=== PATIENT | female | born 1945 | race Caucasian/White ===

== ENCOUNTER 2024-10-01 13:11 | Outpatient (CLI) | payer MEDICARE, OTHER, SELFPAY ==
--- NOTE | ~2024-10-01 | XR_ITS ---
Left wrist Technique: PA, oblique, lateral, and ulnar deviation views were obtained. Clinical History: Arthritis Findings: No acute fracture identified. There is widening of the scapholunate interval. There is mack re degenerative change of the first CMC joint. Soft tissues are unremarkable. Impression: Widening of the scapholunate interval is compatible with underlying scapholunate ligament tear. 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 Reviewed, dictated and finalized at location [facility] [employer] [facility] Impression: Widening of the scapholunate interval is compatible with underlying scapholunat e ligament tear. 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
--- NOTE | ~2024-10-01 | XR_ITS ---
Right wrist Technique: PA, oblique, lateral, and ulnar deviation views were obtained. Clinical History: Arthritis Findings: No acute fracture identified. There is widening of the scapholunate interval, compatible wi th underlying scapholunate ligament tear. There is advanced degenerative change of the triscaphe join t and first CMC joint. 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 Soft tissues are unremarkable. Impression: Scapholunate interval widening is compatible with underlying scapholunate ligament tear. Severe degenerative change at the first CMC joint and triscaphe joint. Chronic nonunited ulnar styloid process fracture. Reviewed, dictated and finalized at location . [facility] Impression: Scapholunate interval widening is compatible with underlying scapholunate ligam ent tear. Severe degenerative change at the first CMC joint and triscaphe joint. Chronic nonunited ulnar styloid process fracture.
== END 2024-10-01 13:12 | disposition home or self-care (01) ==
PROVIDERS: PCP Physician Assistant; Visit Provider Physician Assistant
DX: S63.592A Other specified sprain of left wrist, initial encounter (principal); X58.XXXA Exposure to other specified factors, initial encounter; S52.611K Displaced fracture of right ulna styloid process, subsequent encounter for closed fracture with nonunion; M18.12 Unilateral primary osteoarthritis of first carpometacarpal joint, left hand; M18.11 Unilateral primary osteoarthritis of first carpometacarpal joint, right hand; M19.031 Primary osteoarthritis, right wrist; M19.032 Primary osteoarthritis, left wrist
CPT/HCPCS: 73110